=== PATIENT | female | born 1990 | race Caucasian/White ===

== ENCOUNTER 2018-03-09 22:15 | Emergency (ER) | payer OTHER ==
[2018-03-09] MEDS: ALPRAZolam 0.5 MG TABLET PO (23:12)
== END 2018-03-09 23:17 | disposition home or self-care (01) ==
LOC: ER 23:17
DX: F41.9 Anxiety disorder, unspecified (principal)
CPT/HCPCS: 93005; 99284

== ENCOUNTER 2018-03-21 15:37 | Emergency (ER) | payer OTHER ==
[2018-03-21] MEDS: HYDROcodone/APAP 5/325MG 1 TAB TABLET PO (16:19)
[2018-03-21] MEDS: LIDOCAINE WITH 8.4% SOD BICARB 3 ML DISP.SYRIN. INJ (16:48)
== END 2018-03-21 18:23 | disposition home or self-care (01) ==
LOC: ER 15:37
DX: S52.611A Displaced fracture of right ulna styloid process, initial encounter for closed fracture (principal); Z88.8 Allergy status to other drugs, medicaments and biological substances; W01.0XXA Fall on same level from slipping, tripping and stumbling without subsequent striking against object, initial encounter; Y93.89 Activity, other specified; Y99.8 Other external cause status; Y92.89 Other specified places as the place of occurrence of the external cause
CPT/HCPCS: 25650; 73090; 73110; 99284-25; 99285-25

== ENCOUNTER 2018-03-31 09:31 | Day surgery (SDC) | payer OTHER ==
[~2018-03-31 09:31] MED LIST: MORPHINE SULFATE 2 MG/ML DISP.SYRIN. IV; ONDANSETRON PF 4 MG/2 ML VIAL. IV; PROCHLORPERAZINE 10 MG/2 ML VIAL. IV; fentaNYL PF VIAL 100 MCG/2 ML VIAL IV
[2018-03-31] MEDS ORDERED: PROPOFOL 20 ML IV ×2 (10:23→12:18)
[2018-03-31] MEDS ORDERED: DEXAMETHASONE SOD PHOS 20 MG/5 ML VIAL. (10:23)
[2018-03-31] MEDS ORDERED: ONDANSETRON PF 4 MG/2 ML VIAL. (10:23)
[2018-03-31] MEDS ORDERED: SEVOFLURANE 61 TO 120 MINUTES. IH (10:23)
[2018-03-31] MEDS ORDERED: KETOROLAC 30 MG/ML INJ FOR OR. INJ (10:23)
[2018-03-31] MEDS ORDERED: fentaNYL PF VIAL 100 MCG/2 ML VIAL ×3 (10:23→13:33)
[2018-03-31] MEDS ORDERED: MIDAZOLAM HCL/PF 2 MG/2 ML VIAL. (10:23)
[2018-03-31] MEDS: IV RINGERS,LACTATED 1000ML 1,000 ML IV (10:27)
[2018-03-31 10:36] LABS: NEG OBC UR NEG; POS OBC UR POS; U PREG PATIENT NEGATIVE (NEG)
[2018-03-31] MEDS: LIDOCAINE 1% PF 30 ML VIAL. (11:26)
[2018-03-31] MEDS: BUPIVACAINE MPF 0.5% 30 ML VIAL. (11:26)
[2018-03-31] MEDS ORDERED: ceFAZolin 2GM PREMIX 2 GM/50 ML BAG IV (12:00)
[2018-03-31] MEDS: LIDOCAINE 1% PF 2 ML VIAL. ID (12:59)
[2018-03-31] MEDS: fentaNYL PF VIAL 100 MCG/2 ML VIAL IV ×4 (13:05→13:48)
[2018-03-31] MEDS: HYDROcodone/APAP 7.5/325MG 1 TAB TABLET PO (14:25)
== END 2018-03-31 15:08 | disposition home or self-care (01) ==
LOC: SURG 09:31
DX: S52.571A Other intraarticular fracture of lower end of right radius, initial encounter for closed fracture (principal); W19.XXXA Unspecified fall, initial encounter; Y93.89 Activity, other specified; Y92.89 Other specified places as the place of occurrence of the external cause; Y99.8 Other external cause status; F31.9 Bipolar disorder, unspecified; Z98.890 Other specified postprocedural states; Z79.899 Other long term (current) drug therapy; Z88.8 Allergy status to other drugs, medicaments and biological substances
CPT/HCPCS: 25608; 76000; 81025; A7015; C1713; J0690; J1100; J1885; J2250; J2405; J2704; J3010; J3490; J7120

== ENCOUNTER 2018-11-25 03:52 | Emergency (ER) | payer OTHER ==
[~2018-11-25] VITALS: Ht 165.1 cm; Wt 96.6 kg
[~2018-11-25 03:52] MED LIST changes: +HYDR-2765 PO; +HYDR-3164 PO; +IBUP-1060 PO; +LAMO200T2 PO; -MORPHINE SULFATE 2 MG/ML DISP.SYRIN. IV; +NALT50TA PO; -ONDANSETRON PF 4 MG/2 ML VIAL. IV; +PARO40TA3 PO; -PROCHLORPERAZINE 10 MG/2 ML VIAL. IV; +RISP1TAB3 PO; +TRAZ-86 PO; -fentaNYL PF VIAL 100 MCG/2 ML VIAL IV
[2018-11-25] MEDS ORDERED: ONDANSETRON PF 4 MG/2 ML VIAL. IV ONE (04:15)
[2018-11-25] MEDS ORDERED: FAMOTIDINE 20 MG/2 ML VIAL IVP ONE (04:15)
[2018-11-25] MEDS ORDERED: IV NORMAL SALINE 1000ML BAG 1,000 ML IV ONE (04:15)
[2018-11-25 04:42] LABS: BASO % 0 % (0-3); EOS % 0 % (0-3); HEMATOCRIT 42.5 % (36.0-47.0); HEMOGLOBIN 14.7 g/dL (12.0-15.5); LYMPH # 1.9 x10^3/uL (1.0-4.8); LYMPH % 18 % (24-48); MEAN CORPUSCULAR HEMOGLOBIN 30 pg (25-35); MEAN CORPUSCULAR HGB CONC 35 g/dL (31-37); MEAN CORPUSCULAR VOLUME 87 fL (79-100); MONO # 0.3 x10^3/uL (0.0-1.1); MONO % 3 % (0-9); NEUT % 78 % (31-73); PLATELET COUNT 361 x10^3/uL (140-400); RED BLOOD COUNT 4.86 x10^6/uL (3.50-5.40); RED CELL DISTRIBUTION WIDTH 12.6 % (11.5-14.5); WHITE BLOOD COUNT 10.3 x10^3/uL (4.0-11.0)
[2018-11-25 04:49] LABS: PREG TEST PT QUAL NEGATIVE (NEG)
[2018-11-25 04:57] LABS: CALCIUM 9.5 mg/dL (8.5-10.1); CREATININE 0.7 mg/dL (0.6-1.0); GFR 99.6; POTASSIUM 3.6 mmol/L (3.5-5.1)
[2018-11-25 05:04] LABS: ALBUMIN/GLOBULIN RATIO 0.8 (1.0-1.7); TOTAL BILIRUBIN 0.5 mg/dL (0.2-1.0); TOTAL PROTEIN 8.9 g/dL (6.4-8.2)
[2018-11-25] MEDS ORDERED: MORPHINE SULFATE 10 MG/ML VIAL. IV ONE (05:15)
--- NOTE | 2018-11-25 05:23 | PHYS DOC ---
Past Medical History Past Medical History: Anxiety Additional Past Medical Histor: Borderline personality disorder Past Surgical History: Other Additional Past Surgical Histo: Dental Alcohol Use: Occasionally Drug Use: Marijuana Adult General Chief Complaint Chief Complaint: ABDOMINAL PAIN HPI HPI Patient is a 28 year old with history of anxiety and bipolar disorder who presents with acute onset epigastric pain, vomiting and diarrhea. Symptom onset 2 hours prior to ED arrival. No dizziness lightheadedness, chest pain palpitations shortness of breath. No fever chills, sweats. No flank pain, urinary frequency urgency. No prior abdominal surgeries. No other acute symptoms or complaints. Denies . [] Review of Systems Review of Systems ROS as per hpi All other systems were reviewed and found to be within normal limits, except as documented in this note. Current Medications Current Medications Current Medications Medications (Trade) Dose Ordered Sig/Damaris Start Time Stop Time Status Last Admin Dose Admin Famotidine (Pepcid Vial) 20 mg 1X ONCE 11/25/18 04:15 11/25/18 04:16 DC 11/25/18 04:41 20 MG Info (CONTRAST GIVEN -- Rx MONITORING) 1 each PRN DAILY PRN 11/25/18 05:45 11/27/18 05:44 Iohexol (Omnipaque 300 Mg/ml) 75 ml 1X ONCE 11/25/18 05:45 11/25/18 05:46 DC Morphine Sulfate (Morphine Sulfate) 5 mg 1X ONCE 11/25/18 05:15 11/25/18 05:17 DC 11/25/18 05:44 5 MG Ondansetron HCl (Zofran) 8 mg 1X ONCE 11/25/18 04:15 11/25/18 04:16 DC 11/25/18 04:41 8 MG Prochlorperazine Edisylate (Compazine) 10 mg 1X ONCE 11/25/18 06:00 11/25/18 06:01 UNV 11/25/18 05:56 10 MG Sodium Chloride 1,000 ml @ 1,000 mls/hr 1X ONCE 11/25/18 04:15 11/25/18 05:14 DC 11/25/18 04:41 1,000 MLS/HR Allergies Allergies Allergies Coded Allergies Type Severity Reaction Last Updated Verified pseudoephedrine Allergy Intermediate VOMITING AND DIARRHEA 03/31/18 Yes Physical Exam Physical Exam Constitutional: Well developed, well nourished, no acute distress, non-toxic appearance. [] HENT: Normocephalic, atraumatic, bilateral external ears normal, oropharynx moist, no oral exudates, nose normal. [] Eyes: PERRLA, EOMI, conjunctiva normal, no discharge. [] Neck: Normal range of motion, no tenderness, supple, no stridor. [] Cardiovascular:Heart rate regular rhythm, no murmur [] Lungs & Thorax: Bilateral breath sounds clear to auscultation [] Abdomen: Bowel sounds normal, soft, mild diffuse epigastric pain. Obesity compromising exam. [] Skin: Warm, dry, no erythema, no rash. [] Back: No tenderness. [] Extremities: No tenderness, no cyanosis, no clubbing, ROM intact, no edema. [] Neurologic: Alert and oriented X 3, normal motor function, normal sensory function, no focal deficits noted. [] Psychologic: Affect normal, judgement normal, mood normal. [] Current Patient Data Vital Signs Vital Signs Date Time Temp Pulse Resp B/P (MAP) Pulse Ox O2 Delivery O2 Flow Rate FiO2 11/25/18 05:44 20 99 Room Air Lab Values Laboratory Tests Test 11/25/18 04:20 11/25/18 04:50 11/25/18 05:19 White Blood Count 10.3 x10^3/uL (4.0-11.0) Red Blood Count 4.86 x10^6/uL (3.50-5.40) Hemoglobin 14.7 g/dL (12.0-15.5) Hematocrit 42.5 % (36.0-47.0) Mean Corpuscular Volume 87 fL (79-100) Mean Corpuscular Hemoglobin 30 pg (25-35) Mean Corpuscular Hemoglobin Concent 35 g/dL (31-37) Red Cell Distribution Width 12.6 % (11.5-14.5) Platelet Count 361 x10^3/uL (140-400) Neutrophils (%) (Auto) 78 % (31-73) H Lymphocytes (%) (Auto) 18 % (24-48) L Monocytes (%) (Auto) 3 % (0-9) Eosinophils (%) (Auto) 0 % (0-3) Basophils (%) (Auto) 0 % (0-3) Neutrophils # (Auto) 8.0 x10^3uL (1.8-7.7) H Lymphocytes # (Auto) 1.9 x10^3/uL (1.0-4.8) Monocytes # (Auto) 0.3 x10^3/uL (0.0-1.1) Eosinophils # (Auto) 0.0 x10^3/uL (0.0-0.7) Basophils # (Auto) 0.0 x10^3/uL (0.0-0.2) Sodium Level 135 mmol/L (136-145) L Potassium Level 3.6 mmol/L (3.5-5.1) Chloride Level 98 mmol/L (98-107) Carbon Dioxide Level 21 mmol/L (21-32) Anion Gap 16 (6-14) H Blood Urea Nitrogen 8 mg/dL (7-20) Creatinine 0.7 mg/dL (0.6-1.0) Estimated GFR (Cockcroft-Gault) 99.6 BUN/Creatinine Ratio 11 (6-20) Glucose Level 157 mg/dL (70-99) H Calcium Level 9.5 mg/dL (8.5-10.1) Total Bilirubin 0.5 mg/dL (0.2-1.0) Aspartate Amino Transferase (AST) 45 U/L (15-37) H Alanine Aminotransferase (ALT) 55 U/L (14-59) Alkaline Phosphatase 82 U/L (46-116) Total Protein 8.9 g/dL (6.4-8.2) H Albumin 4.0 g/dL (3.4-5.0) Albumin/Globulin Ratio 0.8 (1.0-1.7) L Lipase 106 U/L (73-393) Serum Test, Qualitative Negative (NEG) Urine Collection Type Unknown Urine Color [place] Urine Clarity Cloudy Urine pH 5.0 Urine Specific [place] >=1.030 Urine Protein 30 mg/dL (NEG-TRACE) Urine Glucose (UA) Negative mg/dL (NEG) Urine Ketones (Stick) Negative mg/dL (NEG) Urine Blood Negative (NEG) Urine Nitrite Negative (NEG) Urine Bilirubin Negative (NEG) Urine Urobilinogen Dipstick 0.2 mg/dL (0.2 mg/dL) Urine Leukocyte Esterase Small (NEG) Urine RBC Occ /HPF (0-2) Urine WBC 5-10 /HPF (0-4) Urine Squamous Epithelial Cells Many /LPF Urine Bacteria Many /HPF (0-FEW) Urine Hyaline Casts Few /HPF Urine Mucus Marked /LPF POC Urine HCG, Qualitative Hcg negative (Negative) Laboratory Tests 11/25/18 04:20 Laboratory Tests 11/25/18 04:20 EKG EKG [] Radiology/Procedures Radiology/Procedures [CT abdomen pelvis:] Course & Med Decision Making Course & Med Decision Making Pertinent Labs and Imaging studies reviewed. (See chart for details) [Work up in progress. CT abdomen and pelvis pending. Care endorsed to oncoming ERP at 600] Dragon Disclaimer Dragon Disclaimer This electronic medical record was generated, in whole or in part, using a voice recognition dictation system. Departure Departure Impression: Primary Impression: Abdominal pain Additional Impression: Vomiting and diarrhea Condition: IMPROVED Referrals: MOE ANDERSON MD (PCP) Problem Qualifiers YOSEPH PADGETT DO Nov 25, 2018 05:23
[2018-11-25 05:36] LABS: BILIRUBIN,URINE NEGATIVE (NEG); CLARITY,URINE CLOUDY; COLOR,URINE AMBER; NITRITE,URINE NEGATIVE (NEG); PROTEIN,URINE 30 mg/dL (NEG-TRACE); UROBILINOGEN,URINE 0.2 mg/dL (0.2 mg/dL)
[2018-11-25] MEDS ORDERED: IOHEXOL 300 MG/ML 100ML VIAL. IV ONE (05:45)
[2018-11-25] MEDS ORDERED: CONTRAST GIVEN. MC PRN (05:45)
[2018-11-25 05:55] LABS: BACTERIA,URINE MANY /HPF (0-FEW); HYALINE CASTS, URINE FEW /HPF; RBC,URINE OCC /HPF (0-2); SQUAMOUS EPITHELIAL CELL,UR MANY /LPF
[2018-11-25] MEDS ORDERED: PROCHLORPERAZINE 10 MG/2 ML VIAL. IV ONE (06:00)
--- NOTE | 2018-11-25 06:49 | RAD ---
EXAM: CT ABDOMEN/PELVIS WITH CONTRAST. HISTORY: Abdominal pain, vomiting, diarrhea. TECHNIQUE: Computed tomography of the abdomen and pelvis was performed after the intravenous administration of 75 mL Omnipaque 300. COMPARISON: None. FINDINGS: Lung windows through the visualized portions of the bases reveal mild atelectasis. Bone windows reveal no suspicious lesions. The gallbladder is distended. There is no pericholecystic inflammation or radiopaque cholelithiasis. The pancreas, adrenal glands, liver, spleen and kidneys are unremarkable. There are no pathologically enlarged lymph nodes. The appendix is not inflamed. The colon is mildly distended with fluid. There is no small bowel obstruction. A small amount of free pelvic fluid is likely physiologic. IMPRESSION: 1. Gallbladder distention may be a normal finding. Sonography could further evaluate if there is concern for cholecystitis. 2. Fluid distention of the colon is consistent with the given history of diarrhea. *One or more of the following individualized dose reduction techniques were utilized for this examination: 1. Automated exposure control. 2. Adjustment of the mA and/or kV according to patient size. 3. Use of iterative reconstruction technique. Electronically signed by: Richi Nickerson MD (11/25/2018 6:44 AM) [id number]
--- NOTE | 2018-11-25 07:50 | RAD ---
Examination: ABDOMEN LTD History: RUQ PAIN Comparison/Correlation: 11/25/2018 CT abdomen and pelvis with IV contrast Findings: Right upper quadrant ultrasound examination was performed. Slight fatty infiltration of the liver is noted. Common bile duct diameter is 0.4 cm. Gallbladder is normal. No cholelithiasis, pericholecystic fluid, or other findings of cholecystitis. Right kidney measures 13 cm x 5.2 cm x 4.2 cm. No right hydronephrosis. Pancreas is mostly obscured by bowel gas. Inferior vena cava is unremarkable. Portal venous flow and spectral waveform are normal. No right upper quadrant ascites. Impression: No cholelithiasis or findings of cholecystitis. Unremarkable right upper quadrant ultrasound exam. Electronically signed by: Cristhian Araya MD (11/25/2018 7:45 AM) [facility]
[2018-11-25] MEDS ORDERED: DIPH1TAB PO (08:21)
[2018-11-25] MEDS ORDERED: ONDA4TAB7 PO (08:21)
[2018-11-25 08:33] VITALS: BP 133/83
== END 2018-11-25 08:35 | disposition home or self-care (01) ==
LOC: ER 03:52
DX: R10.13 Epigastric pain (principal); R11.10 Vomiting, unspecified; R19.7 Diarrhea, unspecified; F31.9 Bipolar disorder, unspecified; Z88.8 Allergy status to other drugs, medicaments and biological substances
CPT/HCPCS: 36415; 74177; 76705; 80053; 81001; 81025; 83690; 84703; 85025; 87086; 96361; 96374; 96375; 99285; J0780; J2270; J2405; J3490; J7030; Q9967; 99284-25

== ENCOUNTER 2020-04-13 00:48 | Emergency (ER) | payer MEDICARE, MEDICAID ==
[~2020-04-13] VITALS: Ht 157.5 cm; Wt 112.0 kg
[~2020-04-13 00:48] MED LIST changes: +DIPH1TAB PO; -LAMO200T2 PO; +LAMO200T6 PO; +ONDA4TAB7 PO; +TRAZ-123 PO; -TRAZ-86 PO
[2020-04-13] MEDS ORDERED: IV NORMAL SALINE 1000ML BAG 1,000 ML IV SCH (01:30)
[2020-04-13 01:46] LABS: BASO # 0.1 x10^3/uL (0.0-0.2); BASO % 1 % (0-3); EOS % 1 % (0-3); HEMATOCRIT 39.1 % (36.0-47.0); HEMOGLOBIN 13.6 g/dL (12.0-15.5); LYMPH # 3.3 x10^3/uL (1.0-4.8); LYMPH % 41 % (24-48); MEAN CORPUSCULAR HEMOGLOBIN 30 pg (25-35); MEAN CORPUSCULAR HGB CONC 35 g/dL (31-37); MEAN CORPUSCULAR VOLUME 86 fL (79-100); MONO # 0.8 x10^3/uL (0.0-1.1); MONO % 10 % (0-9); NEUT # 3.8 x10^3/uL (1.8-7.7); NEUT % 47 % (31-73); PLATELET COUNT 366 x10^3/uL (140-400); RED BLOOD COUNT 4.53 x10^6/uL (3.50-5.40); RED CELL DISTRIBUTION WIDTH 12.6 % (11.5-14.5)
[2020-04-13 01:58] LABS: CREATININE 0.9 mg/dL (0.6-1.0); POTASSIUM 3.6 mmol/L (3.5-5.1)
[2020-04-13 02:06] LABS: ALBUMIN 3.7 g/dL (3.4-5.0); TOTAL BILIRUBIN 0.4 mg/dL (0.2-1.0); TOTAL PROTEIN 7.3 g/dL (6.4-8.2)
[2020-04-13 02:32] LABS: PREG TEST PT QUAL NEGATIVE (NEG)
--- NOTE | 2020-04-13 02:58 | RAD ---
EXAM: CHEST 1 VIEW History: Chest pain COMPARISON: None available. TECHNIQUE: Single portable radiograph of the chest FINDINGS: The cardiac silhouette is unremarkable. The lungs are clear bilaterally. The costophrenic sulci are clear and well demarcated. IMPRESSION: No radiographic evidence of an acute cardiopulmonary process. Electronically signed by: Bhanu Elizabeth MD (04/13/2020 2:55 AM) [id number]
[2020-04-13] MEDS ORDERED: TRAM50TA PO (03:15)
[2020-04-13] MEDS ORDERED: DICL50TA4 PO (03:15)
--- NOTE | 2020-04-13 03:15 | PHYS DOC ---
Past Medical History Past Medical History: Anxiety Additional Past Medical Histor: Borderline personality disorder Past Surgical History: Other Additional Past Surgical Histo: Dental Smoking Status: Never Smoker Alcohol Use: Occasionally Drug Use: Marijuana General Adult EDM: Chief Complaint: CHEST PAIN HPI: HPI: Patient is a 29 year old female who presents with complaint of midsternal chest discomfort that started yesterday. Patient states the pain is sharp and stabbing in nature and states the pain is worsened with deep breathing. She states it is also tender to touch and is worsened with movement. She denies any nausea, vomiting or diaphoresis. [] Review of Systems: Review of Systems: Constitutional: Denies fever or chills. [] Respiratory: Denies cough or shortness of breath. [] Cardiovascular: Complains of chest wall pain. [] GI: Denies abdominal pain, nausea, vomiting, bloody stools or diarrhea. [] Integument: Denies rash. [] Neurologic: Denies headache, focal weakness or sensory changes. [] A full 10 point review of systems has been reviewed and is otherwise negative. Heart Score: Risk Factors: Risk Factors: DM, Current or recent (<one month) smoker, HTN, HLP, family history of CAD, obesity. Risk Scores: Score 0 - 3: 2.5% MACE over next 6 weeks - Discharge Home Score 4 - 6: 20.3% MACE over next 6 weeks - Admit for Clinical Observation Score 7 - 10: 72.7% MACE over next 6 weeks - Early Invasive Strategies Current Medications: Current Medications Medications (Trade) Dose Ordered Sig/Damaris Start Time Stop Time Status Last Admin Dose Admin Sodium Chloride 1,000 ml @ 1,000 mls/hr Q1H 04/13/20 01:30 04/13/20 02:30 DC Allergies: Allergies: Allergies Coded Allergies Type Severity Reaction Last Updated Verified pseudoephedrine Allergy Intermediate VOMITING AND DIARRHEA 03/31/18 Yes Physical Exam: PE: Constitutional: Well developed, well nourished, no acute distress, non-toxic appearance. [] HENT: Normocephalic, atraumatic, bilateral external ears normal, oropharynx moist, no oral exudates, nose normal. [] Eyes: PERRLA, EOMI, conjunctiva normal, no discharge. [] Neck: Normal range of motion, no tenderness, supple, no stridor. [] Cardiovascular: Regular rate and rhythm. Reproducible tenderness is noted along the left sternal border [] Lungs & Thorax: Bilateral breath sounds clear to auscultation [] Abdomen: Bowel sounds normal, soft, no tenderness. [] Skin: Warm, dry, no erythema, no rash. [] Extremities: No tenderness, no cyanosis, no clubbing, ROM intact, no edema. [] Neurologic: Alert and oriented X 3, no focal deficits noted. [] Current Patient Data: Labs: Laboratory Tests Test 04/13/20 01:25 White Blood Count 8.0 x10^3/uL (4.0-11.0) Red Blood Count 4.53 x10^6/uL (3.50-5.40) Hemoglobin 13.6 g/dL (12.0-15.5) Hematocrit 39.1 % (36.0-47.0) Mean Corpuscular Volume 86 fL (79-100) Mean Corpuscular Hemoglobin 30 pg (25-35) Mean Corpuscular Hemoglobin Concent 35 g/dL (31-37) Red Cell Distribution Width 12.6 % (11.5-14.5) Platelet Count 366 x10^3/uL (140-400) Neutrophils (%) (Auto) 47 % (31-73) Lymphocytes (%) (Auto) 41 % (24-48) Monocytes (%) (Auto) 10 % (0-9) H Eosinophils (%) (Auto) 1 % (0-3) Basophils (%) (Auto) 1 % (0-3) Neutrophils # (Auto) 3.8 x10^3/uL (1.8-7.7) Lymphocytes # (Auto) 3.3 x10^3/uL (1.0-4.8) Monocytes # (Auto) 0.8 x10^3/uL (0.0-1.1) Eosinophils # (Auto) 0.0 x10^3/uL (0.0-0.7) Basophils # (Auto) 0.1 x10^3/uL (0.0-0.2) Sodium Level 137 mmol/L (136-145) Potassium Level 3.6 mmol/L (3.5-5.1) Chloride Level 101 mmol/L (98-107) Carbon Dioxide Level 25 mmol/L (21-32) Anion Gap 11 (6-14) Blood Urea Nitrogen 10 mg/dL (7-20) Creatinine 0.9 mg/dL (0.6-1.0) Estimated GFR (Cockcroft-Gault) 74.0 BUN/Creatinine Ratio 11 (6-20) Glucose Level 98 mg/dL (70-99) Calcium Level 9.0 mg/dL (8.5-10.1) Magnesium Level 2.0 mg/dL (1.8-2.4) Total Bilirubin 0.4 mg/dL (0.2-1.0) Aspartate Amino Transferase (AST) 39 U/L (15-37) H Alanine Aminotransferase (ALT) 56 U/L (14-59) Alkaline Phosphatase 72 U/L (46-116) Troponin I Quantitative < 0.017 ng/mL (0.000-0.055) LJ-Cst-F-Type Natriuretic Peptide 23 pg/mL (0-124) Total Protein 7.3 g/dL (6.4-8.2) Albumin 3.7 g/dL (3.4-5.0) Albumin/Globulin Ratio 1.0 (1.0-1.7) Serum Test, Qualitative Negative (NEG) Laboratory Tests 04/13/20 01:25 Laboratory Tests 04/13/20 01:25 Vital Signs: Vital Signs Date Time Temp Pulse Resp B/P (MAP) Pulse Ox O2 Delivery O2 Flow Rate FiO2 04/13/20 00:55 98.2 90 116/60 (78) 98 Room Air 98.2 EKG: EKG: [] Radiology/Procedures: Radiology/Procedures: [] Course & Med Decision Making: Course & Med Decision Making Pertinent Labs and Imaging studies reviewed. (See chart for details) [] Dragon Disclaimer: Dragon Disclaimer: This electronic medical record was generated, in whole or in part, using a voice recognition dictation system. Departure Departure Impression: Primary Impression: Costochondritis Disposition: 01 HOME, SELF-CARE Condition: STABLE Referrals: MOE ANDERSON MD (PCP) Patient Instructions: Costochondritis Scripts Tramadol Hcl (TRAMADOL HCL) 50 Mg Tablet 50 MG PO Q6HRS PRN for PAIN, #12 TAB Prov: KRIS ANGULO Jr. DO 04/13/20 Diclofenac Sodium (DICLOFENAC SODIUM) 50 Mg Tablet. 1 TAB PO BID PRN for PAIN, #20 TAB Prov: KRIS ANGULO Jr. DO 04/13/20 Justicifation of Admission Dx: Justifications for Admission: Justification of Admission Dx: Comment: (Not applicable) KRIS ANGULO Jr. DO Apr 13, 2020 03:15
[2020-04-13 03:20] VITALS: BP 106/62
--- NOTE | 2020-04-15 10:51 | EKG ---
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
== END 2020-04-13 03:23 | disposition home or self-care (01) ==
LOC: ER 00:48
DX: M94.0 Chondrocostal junction syndrome [Tietze] (principal); Z88.8 Allergy status to other drugs, medicaments and biological substances
CPT/HCPCS: 36415; 71045; 80053; 83735; 83880; 84484; 84703; 85025; 93005; 99285-25

== ENCOUNTER 2020-08-31 18:45 | Emergency (ER) | payer OTHER, MEDICAID ==
[~2020-08-31] VITALS: Ht 157.5 cm; Wt 114.0 kg
[2020-08-31 18:45] VITALS: BP 139/86
[~2020-08-31 18:45] MED LIST changes: +DICL50TA4 PO; -RISP1TAB3 PO; +RISP1TAB88 PO; +TRAM50TA PO
--- NOTE | 2020-08-31 18:53 | PHYS DOC ---
Past Medical History Past Medical History: Anxiety Additional Past Medical Histor: Borderline personality disorder Past Surgical History: Other Additional Past Surgical Histo: Dental Smoking Status: Never Smoker Alcohol Use: Occasionally Drug Use: Marijuana General Adult EDM: Chief Complaint: DIZZY/LIGHT HEADED HPI: HPI: History obtained from patient. Patient is a 30-year-old female past medical history significant for anxiety, depression who presents with a chief complaint of lightheadedness. She states she has been lightheaded for the past 4 hours. States that symptoms began slowly while at rest. He states there slightly worse when she ambulates. She states that she has not passed out. Denies any chest pain. Did note some mild shortness of breath when she walked into the emergency department. Denies cough or fever. Denies known exposure to coronavirus or previous testing. Denies abdominal pain. Does note some mild nausea. States that she was told this could be related to her blood pressure by an on-call n dejan so she has been drinking a lot of water. She endorses polyuria. States for same last menstrual period was 4 weeks ago. Denies alcohol or drug consumption. Denies any history of cardiac disease. Denies difficulty swallowing or speaking. Denies vertiginous symptoms. Denies any imbalance sensation. No other complaints. Review of Systems: Review of Systems: Constitutional: Denies fever or chills. [] Eyes: Denies change in visual acuity. [] HENT: Denies nasal congestion or sore throat. [] Respiratory: Denies cough or shortness of breath. [] Cardiovascular: Positive for lightheadedness GI: Denies abdominal pain, nausea, vomiting, bloody stools or diarrhea. [] : Denies dysuria. [] Musculoskeletal: Denies back pain or joint pain. [] Integument: Denies rash. [] Neurologic: Denies headache, focal weakness or sensory changes. [] Endocrine: Denies polyuria or polydipsia. [] Lymphatic: Denies swollen glands. [] Psychiatric: Denies depression or anxiety. [] Heart Score: Risk Factors: Risk Factors: DM, Current or recent (<one month) smoker, HTN, HLP, family history of CAD, obesity. Risk Scores: Score 0 - 3: 2.5% MACE over next 6 weeks - Discharge Home Score 4 - 6: 20.3% MACE over next 6 weeks - Admit for Clinical Observation Score 7 - 10: 72.7% MACE over next 6 weeks - Early Invasive Strategies Allergies: Allergies: Allergies Coded Allergies Type Severity Reaction Last Updated Verified pseudoephedrine Allergy Intermediate VOMITING AND DIARRHEA 03/31/18 Yes Physical Exam: PE: Constitutional: Well developed, well nourished, no acute distress, non-toxic appearance. [] HENT: Normocephalic, atraumatic, bilateral external ears normal, oropharynx moist, no oral exudates, nose normal. [] Eyes: PERRLA, EOMI, conjunctiva normal, no discharge. [] Neck: Normal range of motion, no tenderness, supple, no stridor. [] Cardiovascular:Heart rate regular rhythm, no murmur [] Lungs & Thorax: Bilateral breath sounds clear to auscultation [] Abdomen: Soft, nontender, nonacute abdomen. No involuntary guarding or rigidity noted. No acute peritonitis. Skin: Warm, dry, no erythema, no rash. [] Back: No tenderness, no CVA tenderness. [] Extremities: No tenderness, no cyanosis, no clubbing, ROM intact, no edema. [] Neurologic: Alert with intact cognitive function. No aphasia, dysarthria, or neglect. GCS 15. Pupils 3 mm briskly reactive b/l. No APD present. Cranial nerves 2-12 grossly intact; no facial asymmetry present, tongue midline, shoulder shrugging strength intact. Strength 5/5 and symmetric throughout. Light touch sensation intact throughout. Cerebellar testing appropriate without evidence of dysdiadochokinesia. DTR's 2+ in all 4 extremities. Negative pronator drift bilaterally. Gait normal Psychologic: Affect normal, judgement normal, mood normal. [] Current Patient Data: Labs: Laboratory Tests Test 08/31/20 19:05 08/31/20 19:07 08/31/20 19:10 Urine Collection Type Unknown Urine Color Yellow Urine Clarity Clear Urine pH 7.0 Urine Specific [place] 1.015 Urine Protein Negative mg/dL Urine Glucose (UA) Negative mg/dL Urine Ketones (Stick) Negative mg/dL Urine Blood Negative Urine Nitrite Negative Urine Bilirubin Negative Urine Urobilinogen Dipstick 1.0 mg/dL Urine Leukocyte Esterase Negative Urine RBC 1-2 /HPF Urine WBC 1-4 /HPF Urine Squamous Epithelial Cells Mod /LPF Urine Amorphous Sediment Present /HPF Urine Bacteria Moderate /HPF Urine Mucus Slight /LPF Urine Yeast Present /HPF Bedside Urine HCG, Qualitative Hcg negative White Blood Count 7.9 x10^3/uL Red Blood Count 4.60 x10^6/uL Hemoglobin 14.5 g/dL Hematocrit 40.2 % Mean Corpuscular Volume 88 fL Mean Corpuscular Hemoglobin 32 pg Mean Corpuscular Hemoglobin Concent 36 g/dL Red Cell Distribution Width 12.5 % Platelet Count 375 x10^3/uL Neutrophils (%) (Auto) 58 % Lymphocytes (%) (Auto) 33 % Monocytes (%) (Auto) 7 % Eosinophils (%) (Auto) 1 % Basophils (%) (Auto) 1 % Neutrophils # (Auto) 4.6 x10^3/uL Lymphocytes # (Auto) 2.6 x10^3/uL Monocytes # (Auto) 0.5 x10^3/uL Eosinophils # (Auto) 0.1 x10^3/uL Basophils # (Auto) 0.1 x10^3/uL Sodium Level 139 mmol/L Potassium Level 4.0 mmol/L Chloride Level 105 mmol/L Carbon Dioxide Level 26 mmol/L Anion Gap 8 Blood Urea Nitrogen 7 mg/dL Creatinine 0.8 mg/dL Estimated GFR (Cockcroft-Gault) 84.2 Glucose Level 108 mg/dL Calcium Level 8.9 mg/dL Magnesium Level 2.0 mg/dL Current Medications Medications (Trade) Dose Ordered Sig/Damaris Route PRN Reason Start Time Stop Time Status Last Admin Dose Admin Sodium Chloride 1,000 ml @ 1,000 mls/hr 1X ONCE IV 08/31/20 19:00 08/31/20 19:59 08/31/20 19:16 Metoclopramide HCl (Reglan) 10 mg 1X ONCE PO 08/31/20 19:00 08/31/20 19:01 DC 08/31/20 19:15 Acetaminophen (Tylenol) 1,000 mg 1X ONCE PO 08/31/20 19:00 08/31/20 19:01 DC 08/31/20 19:16 Vital Signs: Vital Signs Date Time Temp Pulse Resp B/P (MAP) Pulse Ox O2 Delivery O2 Flow Rate FiO2 08/31/20 18:45 97.8 81 16 139/86 (103) 95 Room Air 97.8 EKG: EKG: [] EKG consistent with normal sinus rhythm. Ventricular rate of 71 bpm. [place] normal. Intervals normal. No acute ischemic changes noted. Normal EKG. Radiology/Procedures: Radiology/Procedures: [facility] [address] [place] [address] IMAGING REPORT Signed PATIENT: REAL LOFTON ACCOUNT: [id number] : 1990 LOCATION: ER AGE: 30 SEX: F EXAM STATUS: REG ER ORD. PHYSICIAN: CLIFTON BIRD DO REASON: lightheaded PROCEDURE: CHEST AP ONLY Examination: CHEST AP ONLY History: Reason: lightheaded / Spl. Instructions: / History: Comparison: 04/13/2020. Findings: AP portable upright frontal view of the chest was obtained. The cardiomediastinal silhouette is normal. Lungs are clear. There is no pneumothorax. No pleural effusion is appreciated. No acute bone abnormality. IMPRESSION: No acute cardiopulmonary process. Electronically signed by: Cristhian Palmer MD (08/31/2020 7:57 PM) [facility] DICTATED and SIGNED BY: CRISTHIAN PALMER MD DATE: 08/31/201956 [] Course & Med Decision Making: Course & Med Decision Making Pertinent Labs and Imaging studies reviewed. (See chart for details) [] Patient is a well-appearing 30-year-old female presents with chief complaint of lightheadedness that began several hours prior to arrival. Initial EKG normal. Chest x-ray nonacute. All labs been reassuring. Patient denies any red flag signs or symptoms regarding her lightheadedness. Low risk [place] and [place] near syncopal scores. I do feel she is appropriate for outpatient management. She was given IV fluids and antiemetics. She was seen ambulating without difficulty in the emergency department. Orthostatic vital signs were obtained without abnormality. Covid testing was obtained and will be reported as an outpatient. Return precautions discussed and understood. She is stable for discharge home. Dragon Disclaimer: Shari Disclaimer: This electronic medical record was generated, in whole or in part, using a voice recognition dictation system. Departure Departure Impression: Primary Impression: Lightheadedness Disposition: 01 DC HOME SELF CARE/HOMELESS Condition: STABLE Referrals: MOE ANDERSON MD (PCP) Patient Instructions: Near-Syncope Scripts Ondansetron Hcl (ZOFRAN) 4 Mg Tablet 1 TAB PO TID PRN PRN for NAUSEA, #9 TAB Prov: CLIFTON BIRD DO 08/31/20 CLIFTON BIRD DO Aug 31, 2020 18:53
[2020-08-31] MEDS ORDERED: IV NORMAL SALINE 1000ML BAG 1,000 ML IV ONE (19:00)
[2020-08-31] MEDS ORDERED: METOCLOPRAMIDE 10 MG TABLET. PO ONE (19:00)
[2020-08-31] MEDS ORDERED: ACETAMINOPHEN 500 MG TABLET PO ONE (19:00)
[2020-08-31 19:13] LABS: BILIRUBIN,URINE NEGATIVE (NEG); CLARITY,URINE CLEAR; COLOR,URINE YELLOW; NITRITE,URINE NEGATIVE (NEG); PROTEIN,URINE NEGATIVE (NEG-TRACE)
[2020-08-31 19:18] LABS: BACTERIA,URINE MODERATE /HPF (0-FEW)
[2020-08-31 19:18] LABS: BASO # 0.1 x10^3/uL (0.0-0.2); BASO % 1 % (0-3); EOS # 0.1 x10^3/uL (0.0-0.7); EOS % 1 % (0-3); HEMATOCRIT 40.2 % (36.0-47.0); HEMOGLOBIN 14.5 g/dL (12.0-15.5); LYMPH # 2.6 x10^3/uL (1.0-4.8); LYMPH % 33 % (24-48); MEAN CORPUSCULAR HEMOGLOBIN 32 pg (25-35); MEAN CORPUSCULAR HGB CONC 36 g/dL (31-37); MEAN CORPUSCULAR VOLUME 88 fL (79-100); MONO # 0.5 x10^3/uL (0.0-1.1); MONO % 7 % (0-9); NEUT # 4.6 x10^3/uL (1.8-7.7); NEUT % 58 % (31-73); PLATELET COUNT 375 x10^3/uL (140-400); RED CELL DISTRIBUTION WIDTH 12.5 % (11.5-14.5); WHITE BLOOD COUNT 7.9 x10^3/uL (4.0-11.0)
[2020-08-31 19:19] LABS: AMORPHOUS SEDIMENT,UR PRESENT /HPF; YEAST,URINE PRESENT /HPF
[2020-08-31 19:26] LABS: CALCIUM 8.9 mg/dL (8.5-10.1); CREATININE 0.8 mg/dL (0.6-1.0); GFR 84.2
--- NOTE | 2020-08-31 20:00 | RAD ---
Examination: CHEST AP ONLY History: Reason: lightheaded / Spl. Instructions: / History: Comparison: 04/13/2020. Findings: AP portable upright frontal view of the chest was obtained. The cardiomediastinal silhouette is normal. Lungs are clear. There is no pneumothorax. No pleural effusion is appreciated. No acute bone abnormality. IMPRESSION: No acute cardiopulmonary process. Electronically signed by: Cristhian Araya MD (08/31/2020 7:57 PM) [facility]
[2020-08-31] MEDS ORDERED: ONDA4TAB7 PO (20:31)
--- NOTE | 2020-09-01 14:13 | EKG ---
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
== END 2020-08-31 20:45 | disposition home or self-care (01) ==
LOC: ER 18:45
DX: R42 Dizziness and giddiness (principal); Z88.8 Allergy status to other drugs, medicaments and biological substances
CPT/HCPCS: 36415; 71045; 80048; 81001; 81025; 83735; 85025; 87086; 93005; 96360; 99285; J7030

== ENCOUNTER 2021-05-20 20:34 | Emergency (ER) | payer OTHER, MEDICAID ==
[~2021-05-20] VITALS: Ht 157.5 cm; Wt 113.0 kg
[2021-05-20 22:00] VITALS: BP 121/68
[2021-05-20] MEDS ORDERED: NAPROXEN 500 MG TABLET PO ONE (22:00)
--- NOTE | 2021-05-20 22:26 | RAD ---
XR SHOULDER_LEFT 2+ VIEWS History: Reason: L shoulder and lateral clavicle pain after fall / Spl. Instructions: / History: Technique: 3 views left shoulder. Comparison: None. Findings: Normal alignment. No acute fracture. Impression: 1. No acute osseous abnormality. Electronically signed by: Dustin Olea DO (05/20/2021 10:23 PM) [facility]
--- NOTE | 2021-05-20 22:31 | ED.ADGEN ---
Past Medical History Past Medical History: Anxiety, Depression Additional Past Medical Histor: Borderline personality disorder Past Surgical History: Other Additional Past Surgical Histo: Dental, wrist sx Smoking Status: Never Smoker Alcohol Use: Occasionally Drug Use: Marijuana General Adult EDM: Chief Complaint: UPPER EXTREMITY INJURY HPI: HPI: Patient is a 30 year old female who presents emergency department with complaints of left shoulder pain. Patient states she was sitting on a chair when the chair collapsed and caused her to fall landing on her left shoulder. She reports that as time is gone past she is developed decreased range of motion of her left shoulder. She denies any numbness, tingling, or decreased sensation of the affected extremity. Patient denies any shortness of breath, chest pain, palpitations, nausea, vomiting, back pain, or lower extremity pain. She currently rates her pain 8 out of 10 on the pain scale, the pain increases with movement, she denies any alleviating factors. Patient states she has not taken anything for relief of the pain prior to arrival. She denies any head injury or neck pain with the fall. Review of Systems: Review of Systems: Complete ROS is negative unless otherwise noted in the HPI. Current Medications: Current Medications Medications (Trade) Dose Ordered Sig/Damaris Start Time Stop Time Status Last Admin Dose Admin Naproxen (Naprosyn) 500 mg 1X ONCE 05/20/21 22:00 05/20/21 22:01 DC 05/20/21 22:10 500 MG Allergies: Allergies: Allergies Coded Allergies Type Severity Reaction Last Updated Verified pseudoephedrine Allergy Intermediate VOMITING AND DIARRHEA 03/31/18 Yes Physical Exam: PE: See above Constitutional: Well developed, well nourished, no acute distress, non-toxic appearance, obese. [] HENT: Normocephalic, atraumatic, bilateral external ears normal, nose normal. [] Eyes: PERRLA, EOMI, conjunctiva normal, no discharge. [] Neck: Normal range of motion, no stridor. [] Cardiovascular:Heart rate regular rhythm, lateral left clavicle TTP without crepitus, tenting, or subcutaneous emphysema Lungs & Thorax: Respirations even and unlabored, no retractions, no respiratory distress Skin: Warm, dry, no erythema, no rash. [] Extremities: Left shoulder: Tenderness to palpation over the AC joint with no obvious deformity or skin tenting, no cyanosis, ROM limited due to pain, no edema, 2+ radial pulse Neurologic: Alert and oriented X 3, no focal deficits noted. [] Psychologic: Affect normal, judgement normal, mood normal. [] Current Patient Data: Vital Signs: Vital Signs Date Time Temp Pulse Resp B/P (MAP) Pulse Ox O2 Delivery O2 Flow Rate FiO2 05/20/21 22:00 98.6 89 18 121/68 (103) 96 98.6 EKG: EKG: [] Heart Score: C/O Chest Pain: No Radiology/Procedures: Radiology/Procedures: PROCEDURE: SHOULDER 2+V LEFT XR SHOULDER_LEFT 2+ VIEWS History: Reason: L shoulder and lateral clavicle pain after fall / Spl. Instructions: / History: Technique: 3 views left shoulder. Comparison: None. Findings: Normal alignment. No acute fracture. Impression: 1. No acute osseous abnormality. Electronically signed by: Dustin Olea DO (05/20/2021 10:23 PM) [facility] [] Course & Med Decision Making: Course & Med Decision Making Pertinent Labs and Imaging studies reviewed. (See chart for details) [] Dragon Disclaimer: Dragon Disclaimer: This electronic medical record was generated, in whole or in part, using a voice recognition dictation system. Departure Departure Impression: Primary Impression: Acute pain of left shoulder Disposition: 01 HOME / SELF CARE / HOMELESS Condition: STABLE Referrals: MOE ANDERSON MD (PCP) Patient Instructions: Shoulder Pain, [id number] Additional Instructions: Fill prescription(s) and use as directed. You may also take Tylenol as needed for pain. Recommend application of ice, elevation, and rest of affected extremity. Follow-up with your primary care doctor in 2 to 3 days if symptoms persist, return to the ER if your symptoms worsen. Scripts Naproxen (NAPROXEN) 500 Mg Tablet 1 TAB PO BID PRN for PAIN for 10 Days, #20 TAB 0 Refills Prov: FRANKO MCNAIR APRN 05/20/21 FRANKO MCNAIR APRN May 20, 2021 22:31
[2021-05-20] MEDS ORDERED: NAPR-514 PO (23:07)
== END 2021-05-20 23:15 | disposition home or self-care (01) ==
LOC: ER 20:34
DX: M25.512 Pain in left shoulder (principal); Z88.8 Allergy status to other drugs, medicaments and biological substances
CPT/HCPCS: 73030; 99283